=== PATIENT | male | born 1970 | race African-American/Black ===

== ENCOUNTER 2017-07-24 05:55 | Emergency (ER) | payer OTHER ==
[~2017-07-24] VITALS: Ht 182.9 cm; Wt 86.0 kg
[~2017-07-24 05:55] MED LIST: NO HOME MEDS
[2017-07-24] MEDS ORDERED: MAGNESIUM/ALUMINUM HYDROXIDE/SIMETHICONE 30ML UDC PO STA (06:32)
[2017-07-24] MEDS ORDERED: SODIUM CHLORIDE 0.9% 1,000 ML IV ONE ×2 (06:32→08:12)
[2017-07-24] MEDS ORDERED: MORPHINE SULFATE 4 MG/ML CPJ (NOT FOR IM USE) IV STA (06:32)
[2017-07-24] MEDS ORDERED: FAMOTIDINE 20MG/2ML VIAL IV STA (06:32)
[2017-07-24] MEDS ORDERED: ONDANSETRON HCL 4MG/2ML VIAL IV STA (06:32)
[2017-07-24] MEDS ORDERED: KETOROLAC 30MG/ML VIAL IV ONE (06:45)
[2017-07-24 07:14] LABS: BASOPHILS % 0.9 % (0.0-2.0); EOSINOPHILS % 1.2 % (0.0-5.0); HEMOGLOBIN. 14.1 g/dL (14.0-18.0); LYMPHOCYTES % 31.2 % (20.0-50.0); MEAN CORPUSCULAR HEMOGLOBIN 32.4 pg (28.0-32.0); MEAN CORPUSCULAR VOLUME 94.6 fL (80.0-94.0); MEAN PLATELET VOLUME 7.9 fl (7.4-10.4); MONOCYTES % 5.1 % (2.0-8.0); NEUTROPHILS % 61.6 % (40.0-76.0); PLATELET 216 x1000/uL (130-400); RED BLOOD CELL COUNT 4.34 mill/uL (4.7-6.1); RED CELL DISTRIBUTION WIDTH 12.9 % (11.6-14.6)
[2017-07-24 07:16] LABS: CLARITY URINE CLOUDY (CLEAR); COLOR URINE YELLOW (YELLOW); KETONES URINE NEGATIVE (NEGATIVE); LEUKOCYTE ESTERASE URINE NEGATIVE (NEGATIVE); NITRITE URINE NEGATIVE (NEGATIVE); OCCULT BLOOD URINE 1+ (NEGATIVE); PROTEIN URINE NEGATIVE (NEGATIVE); SPECIFIC GRAVITY URINE 1.012 (1.005-1.030)
[2017-07-24 07:18] LABS: CHLORIDE 106 mEq/L (98-107)
[2017-07-24 07:22] LABS: ETHANOL BLOOD < 10 mg/dL
[2017-07-24 07:39] LABS: INR 1.1; PROTHROMBIN TIME 11.3 sec (9.4-11.6)
[2017-07-24 07:58] LABS: *COCAINE SCREEN URINE PRESUMTIVE POSITIVE (NEGATIVE); METHADONE URINE SCREEN NEGATIVE (NEGATIVE)
[2017-07-24 07:59] LABS: *AMPHETAMINES SCREEN URINE NEGATIVE (NEGATIVE); *BARBITURATES SCREEN URINE NEGATIVE (NEGATIVE); *BENZODIAZEPINES SCREEN URINE NEGATIVE (NEGATIVE); CANNABINOID URINE SCREEN PRESUMTIVE POSITIVE (NEGATIVE); OPIATES URINE SCREEN NEGATIVE (NEGATIVE); PHENCYCLIDINE URINE SCREEN NEGATIVE (NEGATIVE)
[2017-07-24] MEDS ORDERED: LORAZEPAM 2MG/ML CPJ IV ONE (08:15)
[2017-07-24] MEDS ORDERED: MORPHINE SULFATE 10 MG/ML CPJ IM ONE (09:15)
[2017-07-24 12:05] VITALS: BP 177/113
== END 2017-07-24 12:13 | disposition home or self-care (01) ==
LOC: ER 06:07 → CANBEDREQ 12:56
DX: K29.70 Gastritis, unspecified, without bleeding (principal); T40.5X1A Poisoning by cocaine, accidental (unintentional), initial encounter; K59.00 Constipation, unspecified; I10 Essential (primary) hypertension; F12.10 Cannabis abuse, uncomplicated; Z87.891 Personal history of nicotine dependence; Y92.9 Unspecified place or not applicable
CPT/HCPCS: 36415; 71045; 74176; 80053; 80305; 81003; 83690; 83880; 84484; 85025; 85610; 93005; 96361; 96372; 96374; 96375; 99285; G0482; J1885; J2060; J2270; J2405; J3490; J7030; Z7610

== ENCOUNTER 2017-12-22 08:42 | Emergency (ER) | payer OTHER ==
[~2017-12-22] VITALS: Ht 180.3 cm; Wt 75.0 kg
[2017-12-22] MEDS ORDERED: SODIUM CHLORIDE 0.9% 1,000 ML IV ONE (09:13)
[2017-12-22] MEDS ORDERED: ONDANSETRON HCL 4MG/2ML INJ IV STA (09:13)
[2017-12-22] MEDS ORDERED: MORPHINE SULFATE 4 MG/ML CPJ (NOT FOR IM USE) IV STA (09:13)
[2017-12-22 09:43] LABS: BASOPHILS % 0.8 % (0.0-2.0); EOSINOPHILS % 0.1 % (0.0-5.0); HEMATOCRIT. 38.2 % (42.0-52.0); HEMOGLOBIN. 12.9 g/dL (14.0-18.0); LYMPHOCYTES % 29.8 % (20.0-50.0); MEAN CORPUSCULAR HEMOGLOBIN 30.8 pg (28.0-32.0); MEAN CORPUSCULAR VOLUME 91.4 fL (80.0-94.0); MEAN PLATELET VOLUME 8.4 fl (7.4-10.4); NEUTROPHILS % 57.3 % (40.0-76.0); PLATELET 230 x1000/uL (130-400); RED BLOOD CELL COUNT 4.18 mill/uL (4.7-6.1); RED CELL DISTRIBUTION WIDTH 12.5 % (11.6-14.6)
[2017-12-22 09:52] LABS: CHLORIDE 100 mEq/L (98-107)
[2017-12-22 11:52] LABS: CLARITY URINE CLEAR (CLEAR); COLOR URINE DARK YELLOW (YELLOW); KETONES URINE TRACE (NEGATIVE); LEUKOCYTE ESTERASE URINE NEGATIVE (NEGATIVE); NITRITE URINE NEGATIVE (NEGATIVE); OCCULT BLOOD URINE 1+ (NEGATIVE); PROTEIN URINE 1+ (NEGATIVE); SPECIFIC GRAVITY URINE 1.031 (1.005-1.030)
[2017-12-22] MEDS ORDERED: KETOROLAC 30MG/ML VIAL IV ONE (12:00)
[2017-12-22 15:18] VITALS: BP 151/91
== END 2017-12-22 15:34 | disposition home or self-care (01) ==
LOC: ER 09:01
DX: K80.50 Calculus of bile duct without cholangitis or cholecystitis without obstruction (principal); R51 Headache; I10 Essential (primary) hypertension; F17.200 Nicotine dependence, unspecified, uncomplicated; F12.10 Cannabis abuse, uncomplicated; F14.10 Cocaine abuse, uncomplicated
CPT/HCPCS: 36415; 76705; 80053; 81003; 83690; 85025; 96361; 96374; 96375; 99285; G0482; J1885; J2270; J2405; J7030; Z7610

== ENCOUNTER 2017-12-23 07:48 | Emergency (ER) | payer OTHER ==
[~2017-12-23] VITALS: Ht 177.8 cm; Wt 85.0 kg
[2017-12-23] MEDS ORDERED: SODIUM CHLORIDE 0.9% 1,000 ML IV ONE (08:45)
[2017-12-23] MEDS ORDERED: METOCLOPRAMIDE HCL 10MG/2ML VIAL IV ONE (08:45)
[2017-12-23] MEDS ORDERED: KETOROLAC 30MG/ML VIAL IV ONE (08:45)
[2017-12-23] MEDS ORDERED: DIPHENHYDRAMINE 50MG/ML VIAL IV ONE (08:45)
[2017-12-23] MEDS ORDERED: ACETAMINOPHEN 500MG TABLET PO ONE (11:30)
[2017-12-23 12:22] VITALS: BP 155/97
== END 2017-12-23 12:24 | disposition home or self-care (01) ==
LOC: ER 08:00
DX: R51 Headache (principal); E11.9 Type 2 diabetes mellitus without complications; I10 Essential (primary) hypertension; F12.10 Cannabis abuse, uncomplicated; F14.10 Cocaine abuse, uncomplicated
CPT/HCPCS: 70450; 96361; 96374; 96375; 99285; J1200; J2765; J7030; Z7610

== ENCOUNTER 2018-02-16 19:16 | Emergency (ER) | payer OTHER ==
[~2018-02-16] VITALS: Ht 180.3 cm; Wt 75.0 kg
[2018-02-16] MEDS ORDERED: HYDROCODONE/ACETAMINOPHEN 5/325MG TABLET PO ONE (21:30)
[2018-02-16] MEDS ORDERED: HYDROCODONE/ACETAMINOPHEN 5/325MG TABLET ONE (21:40)
[2018-02-16] MEDS ORDERED: TETANUS, DIPHTHERIA, PERTUSSIS VAC/PF 0.5ML (>7YR OLD) IM ONE (23:30)
[2018-02-17] MEDS ORDERED: GADOBENATE DIMEGLUMINE 529 MG/ML 10ML IV ONE (00:41)
[2018-02-17 01:01] LABS: CHLORIDE 103 mEq/L (98-107)
[2018-02-17 01:02] LABS: HEMATOCRIT 38.7 % (42.0-52.0); HEMOGLOBIN 13.2 g/dL (14.0-18.0); MEAN CORPUSCULAR HEMOGLOBIN 32.1 pg (28.0-32.0); MEAN CORPUSCULAR VOLUME 94.6 fL (80.0-94.0); PLATELET 246 x1000/uL (130-400); RED CELL DISTRIBUTION WIDTH 15.7 % (11.6-14.6)
[2018-02-17 01:07] LABS: ETHANOL BLOOD < 10 mg/dL
[2018-02-17] MEDS ORDERED: DEXAMETHASONE 10 MG/ML VIAL IV ONE (02:45)
[2018-02-17] MEDS ORDERED: MORPHINE SULFATE 4 MG/ML CPJ (NOT FOR IM USE) IV ONE (03:15)
[2018-02-17 08:10] VITALS: BP 165/88
== END 2018-02-17 09:27 | disposition short-term general hospital (02) ==
LOC: ER 19:16
DX: S12.301A Unspecified nondisplaced fracture of fourth cervical vertebra, initial encounter for closed fracture (principal); S01.511A Laceration without foreign body of lip, initial encounter; S80.211A Abrasion, right knee, initial encounter; I10 Essential (primary) hypertension; E11.9 Type 2 diabetes mellitus without complications; F12.10 Cannabis abuse, uncomplicated; F14.10 Cocaine abuse, uncomplicated; Z98.890 Other specified postprocedural states; V27.0XXA Motorcycle driver injured in collision with fixed or stationary object in nontraffic accident, initial encounter; Y93.89 Activity, other specified; Y92.488 Other paved roadways as the place of occurrence of the external cause
CPT/HCPCS: 36415; 70450; 70486; 72125; 72156; 80053; 82962; 85027; 86850; 86900; 86901; 90471; 90715; 96374; 96375; 99285; A9577; G0482; J1100; J2270; L0172

== ENCOUNTER 2018-04-28 20:19 | Inpatient (IN) | payer OTHER ==
[~2018-04-28] VITALS: Ht 180.3 cm; Wt 92.1 kg
[2018-04-28] MEDS ORDERED: ONDANSETRON HCL 4MG/2ML INJ IV STA (21:36)
[2018-04-28 21:43] LABS: BASOPHILS % 0.5 % (0.0-2.0); EOSINOPHILS % 1.2 % (0.0-5.0); HEMATOCRIT. 43.2 % (42.0-52.0); HEMOGLOBIN. 14.4 g/dL (14.0-18.0); LYMPHOCYTES % 24.3 % (20.0-50.0); MEAN CORPUSCULAR HEMOGLOBIN 31.7 pg (28.0-32.0); MEAN CORPUSCULAR VOLUME 95.1 fL (80.0-94.0); MEAN PLATELET VOLUME 8.3 fl (7.4-10.4); MONOCYTES % 5.8 % (2.0-8.0); NEUTROPHILS % 68.2 % (40.0-76.0); PLATELET 201 x1000/uL (130-400); RED BLOOD CELL COUNT 4.54 mill/uL (4.7-6.1); RED CELL DISTRIBUTION WIDTH 13.3 % (11.6-14.6)
[2018-04-28 21:45] LABS: CHLORIDE 105 mEq/L (98-107)
[2018-04-28 21:52] LABS: PROTHROMBIN TIME 10.2 sec (9.1-11.1)
[2018-04-28 22:34] LABS: CLARITY URINE CLOUDY (CLEAR); COLOR URINE YELLOW (YELLOW); KETONES URINE NEGATIVE (NEGATIVE); LEUKOCYTE ESTERASE URINE NEGATIVE (NEGATIVE); NITRITE URINE NEGATIVE (NEGATIVE); OCCULT BLOOD URINE 1+ (NEGATIVE); PH URINE 8.5 (4.5-8.0); PROTEIN URINE NEGATIVE (NEGATIVE); SPECIFIC GRAVITY URINE 1.011 (1.005-1.030); UROBILINOGEN URINE 0.2 E.U./dL (0.2-1.0)
[2018-04-29] MEDS ORDERED: MORPHINE SULFATE 4 MG/ML CPJ (NOT FOR IM USE) IV ONE (00:30)
[2018-04-29] MEDS ORDERED: ONDANSETRON HCL 4MG/2ML INJ IV ONE (00:30)
[2018-04-29] MEDS ORDERED: LEVOFLOXACIN 750MG PREMIX 150 ML IV ONE (01:30)
[2018-04-29] MEDS ORDERED: METRONIDAZOLE 500 MG PREMIX 100 ML IV ONE (01:30)
[2018-04-29 05:30] VITALS: BP 133/97
[2018-04-29] MEDS ORDERED: DIPHENHYDRAMINE 50MG/ML VIAL IV PRN (08:00)
[2018-04-29] MEDS ORDERED: ONDANSETRON HCL 4MG/2ML INJ IV PRN (08:00)
[2018-04-29] MEDS ORDERED: IPRATROPIUM/ALBUTEROL 0.5-3(2.5)MG/3ML NEB INH PRN (08:00)
[2018-04-29] MEDS ORDERED: CLONIDINE 0.1MG TABLET PO NR (10:15)
[2018-04-29 10:44] LABS: PHOSPHORUS 3.1 mg/dL (2.5-4.9)
[2018-04-29 11:14] VITALS: BP 162/93
[2018-04-29 13:01] LABS: HEPATITIS B SURFACE ANTIGEN NEGATIVE
[2018-04-29 13:31] LABS: HEPATITIS A AB IGM NEGATIVE (NEGATIVE)
[2018-04-29 16:00] VITALS: BP 164/96
[2018-04-29] MEDS: HYDROMORPHONE HCL/PF 2MG/ML CPJ IV PRN (22:32)
[2018-04-30] VITALS: BP 154/91
[2018-04-30 04:00] VITALS: BP 153/82
[2018-04-30 07:34] LABS: BASOPHILS % 0.8 % (0.0-2.0); EOSINOPHILS % 2.5 % (0.0-5.0); HEMATOCRIT. 43.8 % (42.0-52.0); HEMOGLOBIN. 14.6 g/dL (14.0-18.0); LYMPHOCYTES % 34.8 % (20.0-50.0); MEAN CORPUSCULAR HEMOGLOBIN 31.6 pg (28.0-32.0); MEAN CORPUSCULAR VOLUME 94.6 fL (80.0-94.0); MONOCYTES % 7.9 % (2.0-8.0); PLATELET 221 x1000/uL (130-400); RED BLOOD CELL COUNT 4.63 mill/uL (4.7-6.1); RED CELL DISTRIBUTION WIDTH 13.3 % (11.6-14.6)
[2018-04-30 08:00] VITALS: BP 185/111
[2018-04-30 08:00] LABS: CHLORIDE 105 mEq/L (98-107)
[2018-04-30 08:14] LABS: HIV SCREEN 4G Non Reactive (Non Reactive)
[2018-04-30 08:18] LABS: HDL CHOLESTEROL 81 mg/dL (40-59)
[2018-04-30 08:19] LABS: LDL CHOLESTEROL 102 mg/dL (5-100)
[2018-04-30] MEDS: CLONIDINE 0.1MG TABLET PO PRN (10:59)
[2018-04-30 12:00] VITALS: BP 160/111
[2018-04-30] MEDS: HYDROCODONE/ACETAMINOPHEN 5/325MG TABLET PO PRN (12:27)
[2018-04-30] MEDS: HYDROMORPHONE HCL/PF 2MG/ML CPJ IV PRN ×2 (15:45→21:23)
[2018-04-30 16:00] VITALS: BP 133/85
[2018-04-30 16:56] LABS: INR 1.1; PARTIAL THROMBOPLASTIN TIME 36.1 sec (23.4-31.0); PROTHROMBIN TIME 10.8 sec (9.1-11.1)
[2018-04-30 20:00] VITALS: BP 145/87
[2018-05-01] VITALS: BP 135/90
[2018-05-01] MEDS: HYDROMORPHONE HCL/PF 2MG/ML CPJ IV PRN ×3 (01:07→20:00)
[2018-05-01 04:00] VITALS: BP 148/93
[2018-05-01] MEDS: CLONIDINE 0.1MG TABLET PO PRN ×2 (05:18→20:50)
[2018-05-01 07:28] LABS: CHLORIDE 103 mEq/L (98-107)
[2018-05-01 07:38] LABS: BASOPHILS % 0.8 % (0.0-2.0); EOSINOPHILS % 1.8 % (0.0-5.0); HEMATOCRIT. 42.2 % (42.0-52.0); HEMOGLOBIN. 14.4 g/dL (14.0-18.0); LYMPHOCYTES % 35.2 % (20.0-50.0); MEAN CORPUSCULAR HEMOGLOBIN 32.1 pg (28.0-32.0); MEAN CORPUSCULAR VOLUME 93.9 fL (80.0-94.0); MONOCYTES % 8.3 % (2.0-8.0); NEUTROPHILS % 53.9 % (40.0-76.0); PLATELET 232 x1000/uL (130-400); RED CELL DISTRIBUTION WIDTH 13.2 % (11.6-14.6)
[2018-05-01 08:00] VITALS: BP 150/89
[2018-05-01] MEDS ORDERED: DIATR MEGLU/DIATRIZOATE SOLN 120ML ONE (09:54)
[2018-05-01 12:00] VITALS: BP 147/96
[2018-05-01 16:00] VITALS: BP 151/102
[2018-05-01 20:00] VITALS: BP 157/103
[2018-05-01] MEDS: HYDROCODONE/ACETAMINOPHEN 5/325MG TABLET PO PRN (21:17)
[2018-05-02] VITALS: BP 158/96
[2018-05-02] MEDS: HYDROMORPHONE HCL/PF 2MG/ML CPJ IV PRN ×3 (00:24→09:51)
[2018-05-02 04:00] VITALS: BP 155/99
[2018-05-02] MEDS: CLONIDINE 0.1MG TABLET PO PRN (05:14)
[2018-05-02 06:29] LABS: CHLORIDE 106 mEq/L (98-107)
[2018-05-02 06:34] LABS: BASOPHILS % 0.9 % (0.0-2.0); EOSINOPHILS % 1.6 % (0.0-5.0); HEMATOCRIT. 44.4 % (42.0-52.0); HEMOGLOBIN. 14.9 g/dL (14.0-18.0); LYMPHOCYTES % 29.7 % (20.0-50.0); MEAN CORPUSCULAR HEMOGLOBIN 31.7 pg (28.0-32.0); MEAN CORPUSCULAR VOLUME 94.4 fL (80.0-94.0); MONOCYTES % 9.5 % (2.0-8.0); NEUTROPHILS % 58.3 % (40.0-76.0); PLATELET 229 x1000/uL (130-400); RED BLOOD CELL COUNT 4.71 mill/uL (4.7-6.1); RED CELL DISTRIBUTION WIDTH 13.2 % (11.6-14.6)
[2018-05-02 11:51] VITALS: BP 117/70
[2018-05-02] MEDS ORDERED: POLYETHYLENE GLYCOL 3350 (17GM) 1 DOSE PACK PO SCH (13:45)
[2018-05-02] MEDS ORDERED: PANTOPRAZOLE SODIUM 40 MG/VIAL IV SCH (13:45)
== END 2018-05-02 14:00 | disposition left against medical advice (07) | DRG 465 ==
LOC: ER 20:19 → 6EST 04-29 01:36 → EDBEDREQ 04-29 01:39 → EDBEDREQTM 04-29 01:39 → ENRESERV 04-29 03:19
PROVIDERS: ADMIT Internal Medicine; ATTEND Internal Medicine
DX: N20.0 Calculus of kidney (principal); F12.90 Cannabis use, unspecified, uncomplicated; I10 Essential (primary) hypertension; K59.00 Constipation, unspecified; R10.84 Generalized abdominal pain; R79.89 Other specified abnormal findings of blood chemistry; Z53.21 Procedure and treatment not carried out due to patient leaving prior to being seen by health care provider; F14.90 Cocaine use, unspecified, uncomplicated; F17.200 Nicotine dependence, unspecified, uncomplicated; Z76.5 Malingerer [conscious simulation]; R74.0 Nonspecific elevation of levels of transaminase and lactic acid dehydrogenase [LDH]; K80.80 Other cholelithiasis without obstruction
CPT/HCPCS: 36415; 74018; 74176; 74250; 76705; 78227; 80048; 80061; 80076; 83735; 84100; 84443; 86705; 86709; 86803; 87340; 87389; 93005; 96365; 96375; 96376; 97162; 97165; 99285; A9537; J1170; J1956; J2270; J2405; J3490; Q9963

== ENCOUNTER 2021-06-24 02:05 | Emergency (ER) | payer OTHER ==
[~2021-06-24] VITALS: Ht 180.3 cm; Wt 85.0 kg
[2021-06-24] MEDS ORDERED: ONDANSETRON HCL 4MG/2ML INJ IV STA (02:24)
[2021-06-24] MEDS ORDERED: MORPHINE SULFATE 4 MG/ML CPJ (NOT FOR IM USE) IV STA ×2 (02:24→04:03)
[2021-06-24] MEDS ORDERED: SODIUM CHLORIDE 0.9% 1,000 ML IV ONE (02:30)
[2021-06-24 03:18] LABS: BASOPHILS % 0.5 % (0.0-2.0); CHLORIDE 101 mEq/L (98-107); EOSINOPHILS % 0.1 % (0.0-5.0); HEMATOCRIT. 36.2 % (42.0-52.0); HEMOGLOBIN. 12.5 g/dL (14.0-18.0); LYMPHOCYTES % 33.2 % (20.0-50.0); MEAN CORPUSCULAR VOLUME 89.7 fL (80.0-94.0); MEAN PLATELET VOLUME 9.1 fl (7.4-10.4); MONOCYTES % 12.3 % (2.0-8.0); NEUTROPHILS % 53.9 % (40.0-76.0); PLATELET 276 x1000/uL (130-400); RED BLOOD CELL COUNT 4.03 mill/uL (4.7-6.1); RED CELL DISTRIBUTION WIDTH 13.6 % (11.6-14.6)
[2021-06-24 03:22] LABS: ETHANOL BLOOD < 10 mg/dL
[2021-06-24] MEDS ORDERED: ONDA4TAB5 MT (04:19)
[2021-06-24] MEDS ORDERED: FAMO-135 MT (04:19)
[2021-06-24 05:41] VITALS: BP 116/75
== END 2021-06-24 05:46 | disposition home or self-care (01) ==
LOC: ER 02:05
DX: R10.84 Generalized abdominal pain (principal); R11.2 Nausea with vomiting, unspecified; Z98.890 Other specified postprocedural states
CPT/HCPCS: 36415; 74176; 80053; 80320; 83690; 85025; 96374; 96375; 96376; 99284; J2270; J2405; J7030; G0480

== ENCOUNTER 2021-06-26 23:13 | Emergency (ER) | payer OTHER ==
[~2021-06-26] VITALS: Ht 175.3 cm; Wt 84.0 kg
[~2021-06-26 23:13] MED LIST changes: +FAMO-135 MT; +ONDA4TAB5 MT
[2021-06-26] MEDS ORDERED: ONDANSETRON HCL 4MG/2ML INJ IV STA (23:16)
[2021-06-26] MEDS ORDERED: KETOROLAC 30MG/ML VIAL IV STA (23:16)
[2021-06-26] MEDS ORDERED: SODIUM CHLORIDE 0.9% 1,000 ML IV ONE (23:30)
[2021-06-26 23:57] LABS: BASOPHILS % 1.5 % (0.0-2.0); EOSINOPHILS % 0.4 % (0.0-5.0); HEMATOCRIT. 31.2 % (42.0-52.0); HEMOGLOBIN. 10.8 g/dL (14.0-18.0); LYMPHOCYTES % 26.7 % (20.0-50.0); MEAN CORPUSCULAR HEMOGLOBIN 31.3 pg (28.0-32.0); MEAN CORPUSCULAR VOLUME 90.6 fL (80.0-94.0); MONOCYTES % 13.7 % (2.0-8.0); NEUTROPHILS % 57.7 % (40.0-76.0); PLATELET 288 x1000/uL (130-400); RED BLOOD CELL COUNT 3.44 mill/uL (4.7-6.1); RED CELL DISTRIBUTION WIDTH 13.5 % (11.6-14.6)
[2021-06-27 00:01] LABS: CHLORIDE 103 mEq/L (98-107)
[2021-06-27] MEDS ORDERED: HALOPERIDOL LACTATE 5MG/ML VIAL IM ONE (02:00)
[2021-06-27] MEDS ORDERED: POTASSIUM CHLORIDE 20MEQ TABLET SR PO ONE (02:45)
[2021-06-27] MEDS ORDERED: OMEP40CA20 MT (03:05)
[2021-06-27] MEDS ORDERED: ONDA4TAB5 MT (03:05)
[2021-06-27 06:48] VITALS: BP 132/76
== END 2021-06-27 06:51 | disposition home or self-care (01) ==
LOC: ER 23:13
DX: K52.9 Noninfective gastroenteritis and colitis, unspecified (principal); E87.6 Hypokalemia; I10 Essential (primary) hypertension
CPT/HCPCS: 36415; 74176; 80053; 83690; 85025; 96361; 96372; 96374; 96375; 99284; J1630; J1885; J2405; J7030

== ENCOUNTER 2021-07-06 08:23 | Emergency (ER) | payer OTHER ==
[~2021-07-06] VITALS: Ht 177.8 cm; Wt 77.5 kg
[~2021-07-06 08:23] MED LIST changes: +OMEP40CA20 MT
[2021-07-06] MEDS ORDERED: MORPHINE SULFATE 4 MG/ML CPJ (NOT FOR IM USE) IV STA (08:43)
[2021-07-06] MEDS ORDERED: ONDANSETRON HCL 4MG/2ML INJ IV STA (08:43)
[2021-07-06 09:07] LABS: BASOPHILS % 0.2 % (0.0-2.0); HEMATOCRIT. 34.4 % (42.0-52.0); HEMOGLOBIN. 11.6 g/dL (14.0-18.0); LYMPHOCYTES % 7.9 % (20.0-50.0); MEAN CORPUSCULAR VOLUME 91.4 fL (80.0-94.0); MEAN PLATELET VOLUME 7.5 fl (7.4-10.4); MONOCYTES % 5.1 % (2.0-8.0); NEUTROPHILS % 86.8 % (40.0-76.0); PLATELET 218 x1000/uL (130-400); RED BLOOD CELL COUNT 3.76 mill/uL (4.7-6.1); RED CELL DISTRIBUTION WIDTH 13.6 % (11.6-14.6)
[2021-07-06 09:15] LABS: CHLORIDE 96 mEq/L (98-107)
[2021-07-06] MEDS ORDERED: POTASSIUM CHLORIDE 20MEQ/PACKET PO ONE (09:30)
[2021-07-06] MEDS ORDERED: MAGNESIUM 2 G PREMIX 50 ML IV ONE (09:30)
[2021-07-06 09:49] LABS: CLARITY URINE CLEAR (CLEAR); COLOR URINE YELLOW (YELLOW); KETONES URINE TRACE (NEGATIVE); LEUKOCYTE ESTERASE URINE NEGATIVE (NEGATIVE); NITRITE URINE NEGATIVE (NEGATIVE); OCCULT BLOOD URINE 1+ (NEGATIVE); PH URINE 8.5 (4.5-8.0); PROTEIN URINE TRACE (NEGATIVE)
[2021-07-06 10:49] LABS: *AMPHETAMINES SCREEN URINE NEGATIVE (NEGATIVE); *BENZODIAZEPINES SCREEN URINE NEGATIVE (NEGATIVE); *COCAINE SCREEN URINE PRESUMTIVE POSITIVE (NEGATIVE); CANNABINOID URINE SCREEN PRESUMTIVE POSITIVE (NEGATIVE); METHADONE URINE SCREEN NEGATIVE (NEGATIVE); OPIATES URINE SCREEN NEGATIVE (NEGATIVE); PHENCYCLIDINE URINE SCREEN NEGATIVE (NEGATIVE)
[2021-07-06 10:50] LABS: *BARBITURATES SCREEN URINE NEGATIVE (NEGATIVE)
[2021-07-06] MEDS ORDERED: FEO PR (12:26)
[2021-07-06] MEDS ORDERED: POLY17PO3 MT (12:26)
[2021-07-06 13:15] VITALS: BP 156/90
== END 2021-07-06 13:37 | disposition home or self-care (01) ==
LOC: ER 08:23
DX: K59.00 Constipation, unspecified (principal); R11.2 Nausea with vomiting, unspecified; E87.6 Hypokalemia; R10.9 Unspecified abdominal pain; I10 Essential (primary) hypertension; F12.10 Cannabis abuse, uncomplicated; Z79.899 Other long term (current) drug therapy
CPT/HCPCS: 36415; 71045; 74176; 80053; 80305; 81003; 83690; 83880; 84484; 85025; 93005; 96365; 96375; 99285; J2270; J2405; J3475

== ENCOUNTER 2021-07-13 09:57 | Emergency (ER) | payer OTHER ==
[~2021-07-13] VITALS: Ht 180.3 cm; Wt 82.0 kg
[~2021-07-13 09:57] MED LIST changes: +FEO PR; +POLY17PO3 MT
[2021-07-13] MEDS ORDERED: HALOPERIDOL LACTATE 5MG/ML VIAL IM ONE (10:30)
[2021-07-13 11:34] LABS: BASOPHILS % 1.3 % (0.0-2.0); HEMOGLOBIN. 11.3 g/dL (14.0-18.0); LYMPHOCYTES % 22.9 % (20.0-50.0); MEAN CORPUSCULAR HEMOGLOBIN 30.6 pg (28.0-32.0); MEAN CORPUSCULAR VOLUME 91.8 fL (80.0-94.0); MEAN PLATELET VOLUME 9.9 fl (7.4-10.4); MONOCYTES % 10.4 % (2.0-8.0); NEUTROPHILS % 64.4 % (40.0-76.0); PLATELET 344 x1000/uL (130-400); RED CELL DISTRIBUTION WIDTH 14.1 % (11.6-14.6)
[2021-07-13 11:53] LABS: CHLORIDE 96 mEq/L (98-107)
[2021-07-13] MEDS ORDERED: KETOROLAC 30MG/ML VIAL IM ONE (13:00)
[2021-07-13] MEDS ORDERED: IOHEXOL-300 100 ML BOTTLE ONE (14:39)
[2021-07-13] MEDS ORDERED: SODIUM CHLORIDE 0.9% 1,000 ML IV ONE (15:15)
[2021-07-13] MEDS ORDERED: PIPERACILLIN/TAZOBACTAM 3.375GM/50ML PREMIX IV ONE (15:15)
[2021-07-13] MEDS ORDERED: PIPERACILLIN/TAZ 3.375G PREMIX 50 ML IV ONE (15:30)
[2021-07-13] MEDS ORDERED: PIPERACILLIN/TAZ 3.375G PREMIX 50 ML IV NR (17:00)
[2021-07-13] MEDS ORDERED: MORPHINE SULFATE 4 MG/ML CPJ (NOT FOR IM USE) IV ONE (18:30)
[2021-07-13 20:00] VITALS: BP 122/75
== END 2021-07-13 20:58 | disposition short-term general hospital (02) ==
LOC: ER 10:07
DX: K80.50 Calculus of bile duct without cholangitis or cholecystitis without obstruction (principal); R10.11 Right upper quadrant pain; I10 Essential (primary) hypertension; F12.10 Cannabis abuse, uncomplicated; Z79.899 Other long term (current) drug therapy; Z20.822 Contact with and (suspected) exposure to COVID-19
CPT/HCPCS: 36415; 74177; 76705; 80053; 83690; 85025; 87426; 96365; 96366; 96372; 96375; 99285; J1630; J1885; J2270; Q9967; J2543